=== PATIENT | female | born 1995 | race Caucasian/White ===

== ENCOUNTER 2018-09-10 18:22 | Emergency (ER) | payer OTHER ==
[2018-09-10 18:54] VITALS: BMI 30.4
--- NOTE | 2018-09-10 18:54 | PDOC ---
Rapid Medical Evaluation Chief Complaint: Chest Pain Time Seen by Provider: 09/10/18 18:51 Medical Evaluation: Allergies Allergy/AdvReac Type Severity Reaction Status Date / Time No Known Allergies Allergy Verified 09/10/18 18:51 09/10/18 18:51 I have performed a brief in-person evaluation of this patient. The patient presents with a chief complaint of: chest pain and palpatations x1 week with left arm pain hx of anxiety Pertinent physical exam findings:NAD I have ordered the following:cardiac work up u preg The patient will proceed to the ED for further evaluation. 09/10/18 18:53 Discharge Disposition - Diagnosis Heart palpitations - Referrals - Patient Instructions - Post Discharge Activity
--- NOTE | 2018-09-10 19:32 | PDOC ---
*Physical Exam - Vital Signs Last Vital Signs Temp Pulse Resp BP Pulse Ox 97.3 F L 85 16 120/83 100 09/10/18 18:51 09/10/18 18:51 09/10/18 18:51 09/10/18 18:51 09/10/18 18:51 Medical Decision Making - Medical Decision Making 09/10/18 19:30 Patient seen by the advanced practice provider under my direct supervision. Ancillary testing reviewed as necessary. I agree with plan as outlined by the advanced practice provider. *DC/Admit/Observation/Transfer Diagnosis at time of Disposition: Heart palpitations - Referrals - Patient Instructions - Post Discharge Activity
--- NOTE | 2018-09-10 19:48 | PDOC ---
History of Present Illness - General Chief Complaint: Chest Pain Stated Complaint: CHEST PAIN Time Seen by Provider: 09/10/18 18:51 History Source: Patient Exam Limitations: No Limitations - History of Present Illness Initial Comments: 09/10/18 20:13 HISTORY OF PRESENT ILLNESS: 22-year-old woman past medical history of anxiety who presents emergency department for evaluation of chest pain which started one week ago. Patient describes her chest pain as a burning sensation which is located mostly over the epigastrium and center of the chest. Patient reports having a foul taste in her mouth when the chest pain starts. Patient reports having intermittent nausea and diaphoresis when she has painful episodes. Not all painful episodes are accompanied by nausea and diaphoresis. Patient reports attacks are more frequent after eating. Patient reports this is different than her usual anxiety symptoms but is tried taking her entire anxiety medicine with minimal relief. No recent travel or sick contacts. PAST MEDICAL HISTORY: Anxiety SURGICAL HISTORY: Denies ALLERGIES: No known drug allergies REVIEW OF SYSTEMS General/Constitutional: Denies fever or chills. Denies weakness, weight change. HEENT: Denies change in vision. Denies ear pain or discharge. Denies sore throat. Cardiovascular: see HPI Respiratory: Denies cough, wheezing, or hemoptysis. Gastrointestinal: See HPI Genitourinary: Denies dysuria, frequency, or change in urination. Musculoskeletal: Denies joint or muscle swelling or pain. Denies neck or back pain. Skin and breasts: Denies rash or easy bruising. Neurologic: Denies headache, vertigo, loss of consciousness, or loss of sensation. Psychiatric: Denies depression or anxiety. Endocrine: Denies increased thirst. Denies abnormal weight change. Hematologic/Lymphatic: Denies anemia, easy bleeding, or history of blood clots. Allergic/Immunologic: Denies hives or skin allergy. Denies latex allergy. PHYSICAL EXAM General Appearance: Well-appearing, appropriately dressed. No apparent distress , no intoxication. HEENT: EOMI, PERRLA, normal ENT inspection, normal voice, TMs normal, pharynx normal. No conjunctival pallor. No photophobia, scleral icterus. Neck: Supple. Trachea midline. No tenderness, rigidity, carotid bruit, stridor , lymphadenopathy, or thyromegaly. Respiratory/Chest: Lungs CTAB. No shortness of breath, chest tenderness, respiratory distress, accessory muscle use. No crackles, rales, rhonchi, stridor , wheezing, dullness Cardiovascular: RRR. S1, S2. No JVD, murmur, bradycardia, tachycardia. Vascular Pulses: Dorsalis-Pedis (R): 2+, Dorsalis-Pedis (L): 2+ Gastrointestinal/Abdominal: Normal bowel sounds. Abdomen soft, non-distended. No tenderness or rebound tenderness. No organomegaly, pulsatile mass, guarding, hernia, hepatomegaly, splenomegaly. Lymphatic: No adenopathy, tenderness. Musculoskeletal/Extremities: Normal inspection. FROM of all extremities, normal capillary refill. Pelvis Stable. No CVA tenderness. No tenderness to extremities, pedal edema, swelling, erythema or deformity. Integumentary: Appropriate color, dry, warm. 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 Fully oriented, alert. Appropriate mood/affect. Motor strength 5/5. No appreciable EOM palsy, facial droop or sensory deficit. Past History - Past Medical History Allergies/Adverse Reactions: Allergies Allergy/AdvReac Type Severity Reaction Status Date / Time No Known Allergies Allergy Verified 09/10/18 18:51 Home Medications: Ambulatory Orders Clonazepam [Klonopin] 0.5 mg PO BID PRN MDD 1 09/10/18 Esomeprazole Magnesium [Nexium 24Hr] 20 mg PO DAILY #30 capsule. 09/10/18 COPD: No Other medical history: ANXIETY - Suicide/Smoking/Psychosocial Hx Smoking History: Never smoked Hx Alcohol Use: No Drug/Substance Use Hx: No *Physical Exam - Vital Signs Last Vital Signs Temp Pulse Resp BP Pulse Ox 97.3 F L 85 16 120/83 100 09/10/18 18:51 09/10/18 18:51 09/10/18 18:51 09/10/18 18:51 09/10/18 18:51 Heart Score/ECG Review - History History: Slightly suspicious - Electrocardiogram EKG: Normal - Age Age: </= 45 - Risk Factors Based on the list above the patient has:: No risk factors known - Troponin Troponin: </= normal limit - Score Heart Score - Total: 0 - ECG Intrepretation Rhythm: Regular Rhythm - [place]ox[place]ox[place]: Normal - ECG Impressions Normal ECG: Yes ED Treatment Course - LABORATORY CBC & Chemistry Diagram: 09/10/18 21:34 09/10/18 21:34 Medical Decision Making - Medical Decision Making 09/10/18 20:15 A/P: 22-year-old woman with 1 week of epigastric and mid chest burning which worsens after eating During physical exam patient began to experience the pain which caused her to have some shortness of breath. Patient reported stiffness in bilateral hands during this attack. Patient was placed on oxygen and was order for Valium 5 mg orally Differential diagnosis includes but is not limited to-anxiety, GERD, ACS, pancreatitis, gastritis, pneumonia, musculoskeletal, PE PE less likely as PERC-0 Labs including cardiac profile and lipase EKG Chest x-ray Urinalysis, urine , urine culture Reassess 09/10/18 20:36 EKG sinus rhythm with rate of 78. Normal intervals present. Normal axis. No ST elevations, ST depressions or T-wave inversions noted. 09/10/18 22:30 Laboratory testing notable for WBC of 15.6. There is no shift. Most likely reactive due to GERD. Chest x-ray as read by me: Angles clear. Cardiac silhouette is within normal limits. No focal infiltrates or consolidations noted. I'll discharge the patient home to follow-up with her primary doctor. We'll give the patient a prescription for PPI to take as an outpatient. I discussed the physical exam findings, ancillary test results and final diagnoses with the patient. I answered all of the patient's questions. The patient was satisfied with the care received and felt comfortable with the discharge plan and treatment plan. The patient will call their primary care physician within 24 hours to arrange follow-up and will return to the Emergency Department with any new, persistent or worsening symptoms. *DC/Admit/Observation/Transfer Diagnosis at time of Disposition: Anxiety GERD (gastroesophageal reflux disease) Qualifiers: Esophagitis presence: esophagitis presence not specified Qualified Code(s): K21.9 - Gastro-esophageal reflux disease without esophagitis - Discharge Dispostion Disposition: HOME Condition at time of disposition: Stable Decision to Admit order: No - Prescriptions Prescriptions: Esomeprazole Magnesium [Nexium 24Hr] 20 mg PO DAILY #30 capsule.dr - Referrals - Patient Instructions Printed Discharge Instructions: DI for Gastroesophageal Reflux Disease (GERD), GERD Diet Additional Instructions: Take Tylenol as needed for headaches. Take Nexium 1 pill daily. Make an appointment with her primary doctor for reevaluation. Return to emergency department for any new or worsening symptoms. Thank you very much for choosing us to provide emergent health care needs. [place] Tylenol segn sea necesario para los laury de evelio. [place] Nexium 1 pastilla diariamente. Gertrude isra angie con omffett mdico de cabecera para moffett reevaluacin. Regrese al departamento de emergencias para cualquier sntoma nuevo o que empeore. Muchas clarita por elegirnos para proporcionar necesidades de atencin mdica de emergencia. - Post Discharge Activity
[2018-09-10] MEDS ORDERED: diazePAM 5 MG TABLET PO ONE (20:09)
[2018-09-10] MEDS ORDERED: diazePAM 5 MG TABLET ONE (20:11)
[2018-09-10 20:34] VITALS: TEMP 98.6
[2018-09-10 21:48] LABS: BASO % 0.6 % (0-2.0); EOS % 0.6 % (0-4.5); HEMATOCRIT 42.6 % (32.4-45.2); HEMOGLOBIN 14.1 GM/dL (10.7-15.3); LYMPH % 17.7 % (8-40); MCHC 33.1 g/dl (32.0-36.0); MEAN CELL VOLUME 87.6 fl (80-96); MEAN PLT VOLUME 9.6 fl (7.5-11.1); MONO % 4.8 % (3.8-10.2); NEUT % 76.3 % (42.8-82.8); PLATELET COUNT 328 K/MM3 (134-434); RBC 4.86 M/mm3 (3.60-5.2); RDW 13.7 % (11.6-15.6); WHITE BLOOD COUNT 15.6 K/mm3 (4.0-10.0)
[2018-09-10 22:02] LABS: INR 1.18 (0.83-1.09)
[2018-09-10 22:15] LABS: ALBUMIN 4.2 g/dl (3.4-5.0); ALK PHOS 125 U/L (45-117); ANION GAP 9 MMOL/L (8-16); BILIRUBIN,TOTAL 0.4 mg/dL (0.2-1); BLOOD UREA NITROGEN 11 mg/dL (7-18); CALCIUM 9.7 mg/dL (8.5-10.1); CHLORIDE 101 mmol/L (98-107); CO2 27 mmol/L (21-32); CREATININE 0.7 mg/dL (0.55-1.3); GLUCOSE,RANDOM 97 mg/dL (74-106); LIPASE 110 U/L (73-393); MAGNESIUM 2.5 mg/dL (1.8-2.4); POTASSIUM 4.5 mmol/L (3.5-5.1); SGOT/AST 31 U/L (15-37); SGPT/ALT 40 U/L (13-61); SODIUM 137 mmol/L (136-145); TOT PROT 9.3 g/dl (6.4-8.2)
[2018-09-10] MEDS ORDERED: MAG HYDROX/AL HYDROX/SIMETH 30 ML UNIT-DOSE CUP PO ONE (22:19)
[2018-09-10] MEDS ORDERED: PANTOPRAZOLE 40 MG TABLET (FP) PO ONE (22:19)
[2018-09-10] MEDS ORDERED: LIDOCAINE VISCOUS 2% ORAL/TOP 20 ML UNIT-DOSE CUP PO ONE (22:19)
[2018-09-10] MEDS ORDERED: MAG HYDROX/AL HYDROX/SIMETH 30 ML UNIT-DOSE CUP ONE (22:46)
[2018-09-10] MEDS ORDERED: PANTOPRAZOLE 40 MG TABLET (FP) ONE (22:46)
[2018-09-10] MEDS ORDERED: LIDOCAINE VISCOUS 2% ORAL/TOP 20 ML UNIT-DOSE CUP ONE (22:46)
[2018-09-10 22:57] VITALS: BP 126/73; PULSE 80
--- NOTE | 2018-09-11 11:48 | EKG ---
Test Reason : Blood Pressure : / mmHG Vent. Rate : 078 BPM Atrial Rate : 078 BPM P-R Int : 122 ms QRS Dur : 086 ms QT Int : 362 ms P-R-T Axes : 018 052 037 degrees QTc Int : 412 ms NORMAL SINUS RHYTHM NORMAL ECG NO PREVIOUS ECGS AVAILABLE Confirmed by JYOTSNA DIAZ MD ([id number]) on 09/11/2018 11:47:55 AM Referred By: Confirmed By:JYOTSNA DIAZ MD
== END 2018-09-10 22:58 | disposition home or self-care (01) ==
LOC: JER 18:22
DX: F41.9 Anxiety disorder, unspecified (principal); K21.9 Gastro-esophageal reflux disease without esophagitis
CPT/HCPCS: 36415; 71046-TC-FY; 80053; 82550; 83690; 83735; 84484; 84703; 85025; 85610; 93005; 93010; 99283-25

== ENCOUNTER 2018-10-08 22:26 | Emergency (ER) | payer OTHER ==
[2018-10-08 22:48] VITALS: BP 160/89; TEMP 98.2; BMI 28.5
--- NOTE | 2018-10-08 23:33 | PDOC ---
Documentation entered by Smith Chung SCRIBE, acting as scribe for Bibi Darnell DO. Bibi Darnell DO: This documentation has been prepared by the Juliet nelson Matthew, SCRIBE, under my direction and personally reviewed by me in its entirety. I confirm that the documentation accurately reflects all work, treatment, procedures, and medical decision making performed by me. Attending Attestation - Resident Resident Name: Laura Wells - ED Attending Attestation I have performed the following: I have examined & evaluated the patient, The case was reviewed & discussed with the resident, I agree w/resident's findings & plan, Exceptions are as noted - HPI HPI: 10/09/18 00:44 Patient is a 22 year old female with no significant past medical history who presents to the ED with complaints of chest pain that began 1 month ago. Patient reports reports experiencing chest pain as well as associated chest palpitations and numbness. She reports symptoms initially beginning 1 month ago and usually last up to 4 hours. Patient reports experiencing the palpitations first followed by the chest pain which she described as a pressure like pain with intermittent right arm numbness. Denies chest pain, sob. Denies nausea, vomiting. Denies contact with sick individuals, out of state travelling. Denies fevers, chills. Denies diarrhea, constipation. Denies dysuria, hematuria. Denies any other symptoms. Allergies: None Social history: No smoking, No alcohol. No illicit drugs. Surgical history: None PMD: None - Physicial Exam PE: 10/09/18 00:44 Constitutional: Awake, alert, oriented. No acute distress. Head: Normocephalic. Atraumatic Eyes: PERRL. EOMI. Conjunctivae are not pale. ENT: Mucous membranes are moist and intact. Posterior pharynx without exudate or erythema. Uvula midline. Neck: Supple. Full ROM. No lymphadenopathy. Cardiovascular: Regular rate. Regular rhythm. S1, S2 regular. Distal pulses are 2+ and symmetric. Pulmonary/Chest: No evidence of respiratory distress. Clear to auscultation bilaterally No wheezing, rales or rhonchi. Abdominal: Soft and nondistended. There is no tenderness. No rebound, guarding or rigidity. No organomegaly. No palpable masses. Good bowel sounds. Back: No CVA tenderness. Musculoskeletal: No edema. No cyanosis. No clubbing. Full range of motion in all extremities. No Calf tenderness. Radial/pedal pulses are intact and 2+ bilaterally Skin: Skin is warm and dry. No petechiae. No purpura. Neurological: Alert and oriented to person, place, and time. Cranial nerves II -XII are grossly intact. Normal speech. Strength is grossly symmetric. No sensory deficits. Psychiatric: Good eye contact. Normal interaction, affect and behavior. - Medical Decision Making 10/08/18 23:33 I, Dr. Bibi Darnell, DO, attest that this document has been prepared under my direction and personally reviewed by me in its entirety. I further attest, that it accurately reflects all work, treatment, procedures and medical decision -making performed by me. 10/09/18 00:14 a/p: 22yo female with intermittent cp and sob x 1 month -does admit to feeling nervous/anxious -has been seen in this ER, [facility], and with her PMD/Cards for this over the last month -scheduled for a halter in the AM. -L sided upper chest pain that causes chills all over her body and sob -no diaphoresis -no nausea -low risk for acs -ekg nonacute -will send labs, dimer - pt was tachy to 117 -will monitor and reassess 10/09/18 00:36 trop negative dimer negative wbc was more elevated on the prior visit, suspect stress reaction tsh pending will continue to monitor 10/09/18 00:58 tsh normal stable for dc to home to follow up with cardiology in the AM as scheduled for her halter monitor and further eval of her cp
--- NOTE | 2018-10-08 23:45 | PDOC ---
History of Present Illness - General Chief Complaint: Chest Pain Stated Complaint: CHEST PAIN Time Seen by Provider: 10/08/18 23:01 History Source: Patient - History of Present Illness Initial Comments: 10/09/18 00:01 The patient is a 22 year old female with no significant reported PMH who presents to our ED c/o palpitations, chest pain and numbness. Symptoms have been occuring for one month and last 4 hours. Patient states she first notices palpitations and sometimes she feels a pressure like chest pain that is associated with R sided numbness. No shortness of breath, lightheadedness. Evaluated by her PMD for her symptoms and states she was started on Magnesium and Vitamin B-12. Evaluation at an outside ED approximately two weeks ago and sent to a head golf professional with PETE and scheduled Holter monitoring tomorrow. No new lower extremity edema, recent travel, OCP use. NKDA PMD: @ [facility] in [place], cannot recall name Past History - Past Medical History Allergies/Adverse Reactions: Allergies Allergy/AdvReac Type Severity Reaction Status Date / Time No Known Allergies Allergy Verified 10/08/18 22:39 COPD: No - Suicide/Smoking/Psychosocial Hx Smoking History: Never smoked Have you smoked in the past 12 months: No Information on smoking cessation initiated: No Hx Alcohol Use: No Drug/Substance Use Hx: No Review of Systems - Review of Systems Constitutional: No: Chills, Fever HEENTM: No: Blurred Vision, Hearing Loss Respiratory: No: Cough, Shortness of Breath, Wheezing Cardiac (ROS): Yes: Chest Pain, Lightheadedness, Palpitations ABD/GI: No: Constipated, Diarrhea, Nausea, Vomiting *Physical Exam - Vital Signs Last Vital Signs Temp Pulse Resp BP Pulse Ox 98.2 F 117 H 16 160/89 100 10/08/18 22:38 10/08/18 22:38 10/08/18 22:38 10/08/18 22:38 10/08/18 22:38 - Physical Exam General Appearance: Yes: Nourished, Appropriately Dressed HEENT: positive: Normal Voice, Hearing Grossly Normal Neck: positive: Trachea midline, Supple Respiratory/Chest: positive: Lungs Clear, Normal Breath Sounds. negative: Labored Respiration, Rapid RR Cardiovascular: positive: S1, S2. negative: Murmur Vascular Pulses: Dorsalis-Pedis (R): 2+, Doralis-Pedis (L): 2+ Gastrointestinal/Abdominal: positive: Normal Bowel Sounds, Soft Extremity: positive: Normal Capillary Refill, Normal Inspection Integumentary: positive: Normal Color, Dry, Warm Neurologic: positive: Fully Oriented, Alert Heart Score/ECG Review - ECG Impressions Comment:: 10/09/18 01:36 EKG shows HR 98, TWI in Lead III - c/w previous EKG ED Treatment Course - LABORATORY CBC & Chemistry Diagram: 10/08/18 23:49 10/08/18 23:49 Medical Decision Making - Medical Decision Making 10/09/18 01:06 22 year old female with palpitations, chest pain, numbness. SiSx intermittent for one month. Currently being evaluated by cardiology w/PETE yesterday and Holter monitoring scheduled for tomorrow. Tachycardic (HR 117) @ triage, repeat VS unremarkable. Will obtain EKG, Troponin x1 to r/o ACS. Will also obtain TSH to r/o palpitations 2/2 to thyroid disease and D-Dimer to r/o PE. 10/09/18 01:34 Troponin (-) x1 TSH nL D-Dimer negative EKG shows no acute ischemic changes @ documented in EKG section of EMR VSS 10/09/18 01:37 Attending counseled patient on importance of follow-up with cardiology. Patient discharged home with return precautions. *DC/Admit/Observation/Transfer Diagnosis at time of Disposition: Chest pain - Discharge Dispostion Disposition: HOME Condition at time of disposition: Good Decision to Admit order: No - Referrals - Patient Instructions Printed Discharge Instructions: DI for Atypical Chest Pain Additional Instructions: Por favor lucila un seguimiento con moffett cardilogo maana bharti se program previamente y lucila isra angie para isra evaluacin con moffett mdico de atencin primaria en las prximas 48 horas. Regrese al Departamento de Emergencias para cualquier sntoma nuevo / que empeora / relacionado. Please follow up with your head golf professional tomorrow as previously scheduled and make an appointment for evaluation with your primary care doctor in the next 48 hours. Return to the Emergency Department for any new/worsening/concerning symptoms. - Post Discharge Activity
[2018-10-09 00:09] LABS: BASO % 0.8 % (0-2.0); EOS % 0.6 % (0-4.5); HEMATOCRIT 36.3 % (32.4-45.2); LYMPH % 21.3 % (8-40); MCH 29.1 pg (25.7-33.7); MCHC 33.1 g/dl (32.0-36.0); MEAN CELL VOLUME 87.9 fl (80-96); MEAN PLT VOLUME 9.1 fl (7.5-11.1); NEUT % 71.3 % (42.8-82.8); PLATELET COUNT 292 K/MM3 (134-434); RBC 4.13 M/mm3 (3.60-5.2); RDW 13.1 % (11.6-15.6); WHITE BLOOD COUNT 13.3 K/mm3 (4.0-10.0)
[2018-10-09] MEDS ORDERED: ACETAMINOPHEN 325 MG TABLET (FP) PO ONE (00:16)
[2018-10-09 00:24] VITALS: PULSE 80
[2018-10-09] MEDS ORDERED: ACETAMINOPHEN 325 MG TABLET (FP) ONE (00:24)
[2018-10-09 00:32] LABS: ALBUMIN 3.4 g/dl (3.4-5.0); ALK PHOS 118 U/L (45-117); ANION GAP 7 MMOL/L (8-16); BILIRUBIN,TOTAL 0.2 mg/dL (0.2-1); BLOOD UREA NITROGEN 10 mg/dL (7-18); CALCIUM 8.9 mg/dL (8.5-10.1); CHLORIDE 104 mmol/L (98-107); CO2 26 mmol/L (21-32); CREATININE 0.6 mg/dL (0.55-1.3); GLUCOSE,RANDOM 98 mg/dL (74-106); POTASSIUM 3.7 mmol/L (3.5-5.1); SGOT/AST 17 U/L (15-37); SGPT/ALT 52 U/L (13-61); SODIUM 137 mmol/L (136-145); TOT PROT 7.5 g/dl (6.4-8.2)
--- NOTE | 2018-10-09 13:40 | EKG ---
Test Reason : Blood Pressure : / mmHG Vent. Rate : 098 BPM Atrial Rate : 098 BPM P-R Int : 114 ms QRS Dur : 086 ms QT Int : 340 ms P-R-T Axes : 039 053 014 degrees QTc Int : 434 ms NORMAL SINUS RHYTHM NORMAL ECG WHEN COMPARED WITH ECG OF 10-SEP-2018 18:25, NO SIGNIFICANT CHANGE WAS FOUND Confirmed by JYOTSNA DIAZ MD ([id number]) on 10/09/2018 1:39:43 PM Referred By: Confirmed By:JYOTSNA DIAZ MD
== END 2018-10-09 01:28 | disposition home or self-care (01) ==
LOC: JER 22:26
DX: R07.9 Chest pain, unspecified (principal)
CPT/HCPCS: 36415; 80053; 82550; 84443; 84484; 85025; 85379; 93005; 93010; 99283-25

== ENCOUNTER 2018-10-12 17:20 | Emergency (ER) | payer OTHER ==
[2018-10-12 17:27] VITALS: BP 114/77; PULSE 98; TEMP 98.6; BMI 28.8
--- NOTE | 2018-10-12 17:52 | PDOC ---
History of Present Illness - General Chief Complaint: Respiratory Stated Complaint: CHEST PAIN Time Seen by Provider: 10/12/18 17:46 History Source: Patient Exam Limitations: No Limitations - History of Present Illness Initial Comments: 10/12/18 17:49 22-year-old female with no past medical history presents to ED with complaints of hot sensation to her chest and neck intermittently for the past month and has been seen by water taxi captain currently wearing a Holter monitor has to be removed this upcoming Saturday by Dr. Rosado. Patient denies difficulty breathing , palpitations, nausea, dizziness, headache, abdominal pain, change in urine pattern or change in bowel pattern. Patient states has had an echo and is pending a transesophageal echo once the Holter monitor has been reviewed. Patient states has had full workups with no findings and denies any familial cardiac history. Timing/Duration: intermittent Severity: mild Associated Symptoms: reports: chest pain Past History - Travel Traveled outside of the country in the last 30 days: No Close contact w/someone who was outside of country & ill: No - Past Medical History Allergies/Adverse Reactions: Allergies Allergy/AdvReac Type Severity Reaction Status Date / Time No Known Allergies Allergy Verified 10/12/18 17:27 COPD: No - Suicide/Smoking/Psychosocial Hx Smoking History: Never smoked Have you smoked in the past 12 months: No Hx Alcohol Use: No Drug/Substance Use Hx: No Patient Lives Alone: No Lives with/in: parents Review of Systems - Review of Systems Able to Perform ROS?: No Is the patient limited Kiswahili proficient: No Constitutional: No: Symptoms Reported HEENTM: No: Symptoms Reported Respiratory: No: Symptoms reported Cardiac (ROS): Yes: Chest Pain. No: Lightheadedness, Palpitations, Chest Tightness ABD/GI: No: Symptoms Reported : No: Symptoms Reported Musculoskeletal: No: Symptoms Reported Integumentary: No: Symptoms Reported Neurological: No: Symptoms reported Psychiatric: No: Anxiety, Stressors Endocrine: No: Symptoms Reported Hematologic/Lymphatic: No: Symptoms Reported *Physical Exam - Vital Signs Last Vital Signs Temp Pulse Resp BP Pulse Ox 98.6 F 98 H 18 114/77 100 10/12/18 17:23 10/12/18 17:23 10/12/18 17:23 10/12/18 17:23 10/12/18 17:23 - Physical Exam General Appearance: Yes: Nourished, Appropriately Dressed. No: Apparent Distress HEENT: positive: EOMI, MIMI, TMs Normal, Pharynx Normal. negative: Pale Conjunctivae Neck: positive: Normal Thyroid, Supple Respiratory/Chest: positive: Lungs Clear, Normal Breath Sounds. negative: Chest Tender, Respiratory Distress, Accessory Muscle Use Cardiovascular: positive: Regular Rhythm, Regular Rate. negative: Murmur Gastrointestinal/Abdominal: positive: Normal Bowel Sounds, Soft. negative: Tenderness Extremity: positive: Normal Capillary Refill. negative: Pedal Edema Integumentary: positive: Normal Color, Warm, Moist Neurologic: positive: Motor Strength 5/5 (ambulatory) Heart Score/ECG Review - ECG Intrepretation Rhythm: Regular Rhythm (ekg 79, nsr) ED Treatment Course - LABORATORY CBC & Chemistry Diagram: 10/12/18 18:00 10/12/18 18:00 Medical Decision Making - Medical Decision Making 10/12/18 17:50 Chief complaint: Intermittent in "hotness to chest and neck"no aggravating or alleviating factors patient currently being followed by water taxi captain has Holter monitor in place until Saturday where she will follow-up with Dr. Rosado in the office. Exam: Vital stable EKG negative no reproducible pain patient currently appears to be in no distress when talking with friend Plan: Labs/ekg 10/12/18 18:07 Selected Entries 10/12/18 17:23 Pulse Rate 98 H Blood Pressure 114/77
--- NOTE | 2018-10-12 17:56 | PDOC ---
*Physical Exam - Vital Signs Last Vital Signs Temp Pulse Resp BP Pulse Ox 98.6 F 98 H 18 114/77 100 10/12/18 17:23 10/12/18 17:23 10/12/18 17:23 10/12/18 17:23 10/12/18 17:23 ED Treatment Course - LABORATORY CBC & Chemistry Diagram: 10/12/18 18:00 10/12/18 18:00 Medical Decision Making - Medical Decision Making 10/12/18 17:56 Pt seen by the Advanced Practice Provider under my direct supervision Ancillary studies reviewed I agree with plan as outlined by the Advanced Practice Provider ALFREDO Lane *DC/Admit/Observation/Transfer Diagnosis at time of Disposition: Chest pain - Discharge Dispostion Disposition: HOME Condition at time of disposition: Stable - Referrals - Patient Instructions Printed Discharge Instructions: DI for Atypical Chest Pain Additional Instructions: Your Discharge Instructions: You must call primary care physician within 24 hours to arrange follow-up. Return to the Emergency Department with any new, persistent or worsening symptoms, for fever, chills, SOB, dizziness or any other concerning changes that may occur. Follow-up with cardiology on your primary care doctor. We have given you copies of your labs and EKG to present to your doctor's. - Post Discharge Activity
[2018-10-12 18:06] LABS: BASO % 0.8 % (0-2.0); EOS % 1.1 % (0-4.5); HEMATOCRIT 39.8 % (32.4-45.2); LYMPH % 22.6 % (8-40); MCH 28.4 pg (25.7-33.7); MCHC 32.6 g/dl (32.0-36.0); MEAN CELL VOLUME 87.2 fl (80-96); MEAN PLT VOLUME 9.1 fl (7.5-11.1); MONO % 6.6 % (3.8-10.2); NEUT % 68.9 % (42.8-82.8); PLATELET COUNT 334 K/MM3 (134-434); RBC 4.56 M/mm3 (3.60-5.2); RDW 12.9 % (11.6-15.6); WHITE BLOOD COUNT 16.2 K/mm3 (4.0-10.0)
[2018-10-12 18:53] LABS: ALBUMIN 3.6 g/dl (3.4-5.0); ALK PHOS 123 U/L (45-117); ANION GAP 8 MMOL/L (8-16); BILIRUBIN,TOTAL < 0.1 mg/dL (0.2-1); BLOOD UREA NITROGEN 19 mg/dL (7-18); CALCIUM 9.3 mg/dL (8.5-10.1); CHLORIDE 103 mmol/L (98-107); CO2 28 mmol/L (21-32); CREATININE 0.7 mg/dL (0.55-1.3); GLUCOSE,RANDOM 86 mg/dL (74-106); SGOT/AST 16 U/L (15-37); SGPT/ALT 37 U/L (13-61); SODIUM 139 mmol/L (136-145)
--- NOTE | 2018-10-12 19:26 | PDOC ---
*Physical Exam - Vital Signs Last Vital Signs Temp Pulse Resp BP Pulse Ox 98.6 F 98 H 18 114/77 98 10/12/18 17:23 10/12/18 17:23 10/12/18 17:23 10/12/18 17:23 10/12/18 18:04 ED Treatment Course - LABORATORY CBC & Chemistry Diagram: 10/12/18 18:00 10/12/18 18:00 - ADDITIONAL ORDERS Additional order review: Laboratory Results 10/12/18 18:00 Sodium 139 Potassium 4.0 Chloride 103 Carbon Dioxide 28 Anion Gap 8 BUN 19 H Creatinine 0.7 Creat Clearance w eGFR 103.70 Random Glucose 86 Calcium 9.3 Total Bilirubin < 0.1 L AST 16 ALT 37 Alkaline Phosphatase 123 H Creatine Kinase 72 Troponin I < 0.02 Total Protein 8.0 Albumin 3.6 10/12/18 18:00 RBC 4.56 MCV 87.2 MCHC 32.6 RDW 12.9 MPV 9.1 Neutrophils % 68.9 Lymphocytes % 22.6 Monocytes % 6.6 Eosinophils % 1.1 D Basophils % 0.8 Medical Decision Making - Medical Decision Making 10/12/18 19:21 Patient was endorsed to me to follow laboratory and disposition. Patient complains of pain in the left chest and now in the left arm for one month. She has taken Tylenol for the pain with no relief of symptoms. Labwork done here revealed 16,000 white count with in the absence of fever and elevated temperature will not pursue this at this time. Troponin is negative. EKG: SR 79, NAD, no ST-T wave changes. Patient has an appointment with primary care and cardiology on Saturday of this week. We'll give all the labs and a copy of the EKG for follow-up. I discussed the physical exam findings, ancillary test results and final diagnoses with the patient. I answered all of the patient's questions. The patient was satisfied with the care received and felt comfortable with the discharge plan and treatment plan. The Patient agrees to follow up with the primary care physician within 24-72 hours. *DC/Admit/Observation/Transfer Diagnosis at time of Disposition: Chest pain Qualifiers: Chest pain type: unspecified Qualified Code(s): R07.9 - Chest pain, unspecified - Discharge Dispostion Disposition: HOME Condition at time of disposition: Stable - Referrals - Patient Instructions Printed Discharge Instructions: DI for Atypical Chest Pain Additional Instructions: Your Discharge Instructions: You must call primary care physician within 24 hours to arrange follow-up. Return to the Emergency Department with any new, persistent or worsening symptoms, for fever, chills, SOB, dizziness or any other concerning changes that may occur. Follow-up with cardiology on your primary care doctor. We have given you copies of your labs and EKG to present to your doctor's. - Post Discharge Activity
--- NOTE | 2018-10-13 10:00 | EKG ---
Test Reason : Blood Pressure : / mmHG Vent. Rate : 079 BPM Atrial Rate : 079 BPM P-R Int : 144 ms QRS Dur : 080 ms QT Int : 354 ms P-R-T Axes : 057 065 036 degrees QTc Int : 405 ms NORMAL SINUS RHYTHM NORMAL ECG WHEN COMPARED WITH ECG OF 08-OCT-2018 22:20, NO SIGNIFICANT CHANGE WAS FOUND Confirmed by CHELA BAIG MD ([id number]) on 10/13/2018 10:00:03 AM Referred By: Confirmed By:CHELA BAIG MD
== END 2018-10-12 19:35 | disposition home or self-care (01) ==
LOC: JER 17:20
DX: R07.9 Chest pain, unspecified (principal)
CPT/HCPCS: 36415; 80053; 82550; 84484; 85025; 93005; 93010; 99285-25

== ENCOUNTER 2018-10-24 16:55 | Emergency (ER) | payer OTHER ==
--- NOTE | 2018-10-24 17:19 | PDOC ---
Rapid Medical Evaluation Chief Complaint: Chest Pain Time Seen by Provider: 10/24/18 17:07 Medical Evaluation: Allergies Allergy/AdvReac Type Severity Reaction Status Date / Time No Known Allergies Allergy Verified 10/12/18 17:27 10/24/18 17:14 I have performed a brief in-person evaluation of this patient. The patient presents with a chief complaint of: midsternal CP, worse with walking.- has + medical assistant - told has Valve problem . Had midsternal CP last week, resolved and started again today Pertinent physical exam findings: + pansystolic murmer / rubbing chest I have ordered the following: EKG The patient will proceed to the ED for further evaluation. 10/24/18 17:18 Discharge Disposition - Diagnosis Chest pain - Referrals - Patient Instructions - Post Discharge Activity
[2018-10-24 17:20] VITALS: BP 105/63; PULSE 98; TEMP 98.2; BMI 28.5
[2018-10-24] MEDS ORDERED: ACETAMINOPHEN 500 MG TABLET (FP) PO ONE (17:58)
[2018-10-24] MEDS ORDERED: ACETAMINOPHEN 325 MG TABLET (FP) ONE (18:00)
--- NOTE | 2018-10-24 18:01 | PDOC ---
History of Present Illness - General Chief Complaint: Chest Pain Stated Complaint: CHEST PAIN Time Seen by Provider: 10/24/18 17:07 - History of Present Illness Initial Comments: 10/24/18 18:00 The patient is a 22 year old female with no reported significant PMH who presents to our ED c/o acute onset of chest pain. Chest pain is sharp, constant and started this morning around 9 a.m. Patient stated she took a walk hoping the patient would resolve but the pain got worse prompting her to come to the Emergency Department. No previous h/o similar pain. No palpitations, shortness of breath, lightheadedness. 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 ROS is positive for 1 week h/o dysuria and hematuria. As per EMR, multiple evaluations during the past 2 months for chest pain, Troponins (-) patient discharged home with supportive care. Past History - Past Medical History Allergies/Adverse Reactions: Allergies Allergy/AdvReac Type Severity Reaction Status Date / Time No Known Allergies Allergy Verified 10/24/18 17:15 Home Medications: Ambulatory Orders Sulfamethoxazole/Trimethoprim [Bactrim Ds Tablet] 1 each PO BID #6 tablet COPD: No - Immunization History Immunization Up to Date: Yes - Suicide/Smoking/Psychosocial Hx Smoking History: Never smoked Have you smoked in the past 12 months: No Information on smoking cessation initiated: No Hx Alcohol Use: No Drug/Substance Use Hx: No Review of Systems - Review of Systems Constitutional: No: Chills, Fever HEENTM: No: Blurred Vision, Recent change in vision Respiratory: No: Cough, Shortness of Breath, Wheezing Cardiac (ROS): Yes: Chest Pain. No: Lightheadedness, Palpitations, Syncope ABD/GI: No: Constipated, Diarrhea, Nausea, Vomiting *Physical Exam - Vital Signs Last Vital Signs Temp Pulse Resp BP Pulse Ox 98.2 F 98 H 16 105/63 100 10/24/18 17:15 10/24/18 17:15 10/24/18 17:15 10/24/18 17:15 10/24/18 17:15 - Physical Exam General Appearance: Yes: Nourished, Appropriately Dressed HEENT: positive: Normal Voice, Hearing Grossly Normal Neck: positive: Trachea midline, Supple Respiratory/Chest: positive: Lungs Clear, Normal Breath Sounds, Other ( Reproducible substernal chest pain) Cardiovascular: positive: S1, S2. negative: Edema, JVD, Murmur Gastrointestinal/Abdominal: positive: Normal Bowel Sounds, Soft Extremity: positive: Normal Capillary Refill, Normal Inspection Integumentary: positive: Normal Color, Dry, Warm Neurologic: positive: Fully Oriented, Alert Heart Score/ECG Review - ECG Intrepretation Comment:: 10/25/18 00:19 NSR HR 94, normal intervals, no deviations, no VICKY/STD/TWI ED Treatment Course - LABORATORY CBC & Chemistry Diagram: 10/24/18 18:10 10/24/18 18:10 Medical Decision Making - Medical Decision Making 10/24/18 20:07 22 year old well appearing female with acute onset of chest pain this morning. Pain is substernal, sharp, and constant and reproducible. VS unremarkable. PLAN: 1. Troponin x1 2. EKG, CXR 3. UA 4. Tylenol for pain, Toradol s/p negative test EKG non-ischemic as documented in EKG section of EMR Troponin (-) x1 Reactive leukocytosis Continues to c/o pain s/p Tylenol; Urine (-), Toradol for pain UA shows 1375 bacteria, 1+ blood, 3+ leukocyte esterase Patient symptomatically improved s/p Toradol Will discharge home with strong counseling for importance of evaluation by PMD, Bactrim for UTI, return precautions. I discussed the physical exam findings, ancillary test results and final diagnoses with the patient. I answered all of the patient's questions. The patient was satisfied with the care received and felt comfortable with the discharge plan and treatment plan. The patient will return to the Emergency Department with any new, persistent or worsening symptoms. *DC/Admit/Observation/Transfer Diagnosis at time of Disposition: Chest pain, Urinary tract infection - Discharge Dispostion Disposition: HOME Condition at time of disposition: Fair Decision to Admit order: No - Prescriptions Prescriptions: Sulfamethoxazole/Trimethoprim [Bactrim Ds Tablet] 1 each PO BID #6 tablet - Referrals - Patient Instructions Printed Discharge Instructions: DI for Atypical Chest Pain Additional Instructions: Usted fue evaluado hoy por moffett dolor en el pecho. En karina momento usted est seguro para el jeff del hogar. Gertrude isra angie de seguimiento con moffett mdico de atencin primaria para el dolor de pecho. Moffett atencin no est completa hasta que moffett mdico de atencin primaria lo evale. Puede nba Tylenol (hasta 4000 mg al da) y Motrin (hasta 3200 mg al da) para el dolor. Isra prueba de orina mostr isra infeccin del tracto urinario. Hemos enviado un antibitico a moffett farmacia. Por favor tome el curso completo prescrito. Regrese al [facility] para cualquier sntoma nuevo / que empeora / relacionado. - Post Discharge Activity
[2018-10-24 18:23] LABS: HCG,QUALITATIVE URINE Negative; PH,URINE 5.5 (5.0-8.0); URINE APPEARANCE CLOUDY; URINE BACTERIA 1375.8 /hpf (NEGATIVE); URINE BILIRUBIN NEGATIVE (NEGATIVE); URINE CASTS 38 /lpf (0-8); URINE COLOR YELLOW; URINE GLUCOSE (UA) NEGATIVE (NEGATIVE); URINE KETONE NEGATIVE (NEGATIVE); URINE LEUK ESTERASE 3+ (NEGATIVE); URINE NITRITE NEGATIVE (NEGATIVE); URINE PROTEIN NEGATIVE (NEGATIVE); URINE RBC 14 /hpf (0-4); URINE UROBILINOGEN 0.2 mg/dL (0.2-1.0); URINE WBC 61 /hpf (0-5)
[2018-10-24] MEDS ORDERED: KETOROLAC TROMETHAMINE 30 MG/1 ML VIAL IM ONE (18:48)
[2018-10-24 19:01] LABS: BASO % 0.6 % (0-2.0); EOS % 0.9 % (0-4.5); HEMATOCRIT 36.6 % (32.4-45.2); HEMOGLOBIN 11.8 GM/dL (10.7-15.3); LYMPH % 23.3 % (8-40); MCH 28.1 pg (25.7-33.7); MCHC 32.2 g/dl (32.0-36.0); MEAN CELL VOLUME 87.2 fl (80-96); MEAN PLT VOLUME 9.3 fl (7.5-11.1); MONO % 6.7 % (3.8-10.2); NEUT % 68.5 % (42.8-82.8); PLATELET COUNT 284 K/MM3 (134-434); RBC 4.19 M/mm3 (3.60-5.2); RDW 13.7 % (11.6-15.6); WHITE BLOOD COUNT 13.7 K/mm3 (4.0-10.0)
--- NOTE | 2018-10-24 19:04 | PDOC ---
Documentation entered by Samia Rubalcava SCRIBE, acting as scribe for Warner Vergara MD. Warner Vergara MD: This documentation has been prepared by the Khadar nelson Daisy, SCRIBE, under my direction and personally reviewed by me in its entirety. I confirm that the documentation accurately reflects all work, treatment, procedures, and medical decision making performed by me. Attending Attestation - Resident Resident Name: RussellLaura - ED Attending Attestation I have performed the following: I have examined & evaluated the patient, The case was reviewed & discussed with the resident, I agree w/resident's findings & plan, Exceptions are as noted - HPI HPI: 10/24/18 18:10 The patient is a 22YOF with no PMH who presents to the ER for chest pain since 9AM this morning. She reports the chest pain is substernal, constant, and exacerbated with walking and certain positions. She has been evaluated in this ED 3 other times for chest pain but states this pain is slightly different. Pt denies SOB. Denies cough. Denies F/C. Denies leg swelling. Pt is not on OCPs. No recent travel/immobilization. She had a halter monitor and ECHO recently, which were unremarkable. Denies lightheadedness, palpitations, diaphoresis, shortness of breath, fever, chills, N/V. Allergies: NKDA - Physicial Exam PE: 10/24/18 18:58 GENERAL: Awake, alert, and fully oriented, in no acute distress. HEAD: No signs of trauma EYES: PERRLA, EOMI, sclera anicteric, conjunctiva clear ENT: Auricles normal inspection, hearing grossly normal, nares patent, oropharynx clear without exudates. Moist mucosa NECK: Nontender, no stepoffs, Normal ROM, supple, no lymphadenopathy, JVD, or masses LUNGS: Breath sounds equal, clear to auscultation bilaterally. No wheezes, and no crackles HEART: Regular rate and rhythm, normal S1 and S2, no murmurs, rubs or gallops CHEST: + TTP midsternum ABDOMEN: Soft, nontender, normoactive bowel sounds. No guarding, no rebound. No masses EXTREMITIES: Normal range of motion, no edema. No clubbing or cyanosis. No cords, erythema, or tenderness NEUROLOGICAL: Cranial nerves II through XII intact. 5/5 strength and sensation in all extremities, Normal speech, normal gait, normal cerebellar function SKIN: Warm, Dry, normal turgor, no rashes or lesions noted. - Medical Decision Making 10/24/18 18:59 22 F with positional midsternal chest pain. Pain is very atypical and reproducible with palpation. Suspect msk pain/costochondritis. EKG nonischemic. Pt with no PE risk factors, PERC score 0. Had negative Ddimer during previous evaluation for chest pain. EKG with no ST changes or [place] depression to suggest pericarditis, no h/o infectious symptoms. - Labs, trop - Toradol 10/24/18 19:58 Labs wnl, trop negative Pt reassessed - feels better s/p toradol UA + for UTI Will give abx, pt to f/u with PMD Pt is well appearing, with normal vitals. Clinically stable for DC at this time. I discussed the physical exam findings, ancillary test results and final diagnoses with the patient. I answered all of the patient's questions. The patient was satisfied with the care received and felt comfortable with the discharge plan and treatment plan. The patient agrees to follow up with the primary care physician within 24-72 hours.
[2018-10-24] MEDS ORDERED: KETOROLAC TROMETHAMINE 30 MG/1 ML VIAL ONE (19:17)
[2018-10-24 19:32] LABS: ALBUMIN 3.6 g/dl (3.4-5.0); ALK PHOS 107 U/L (45-117); ANION GAP 9 MMOL/L (8-16); BILIRUBIN,TOTAL 0.2 mg/dL (0.2-1); BLOOD UREA NITROGEN 14 mg/dL (7-18); CALCIUM 8.7 mg/dL (8.5-10.1); CHLORIDE 104 mmol/L (98-107); CO2 24 mmol/L (21-32); CREATININE 0.8 mg/dL (0.55-1.3); GLUCOSE,RANDOM 92 mg/dL (74-106); POTASSIUM 3.9 mmol/L (3.5-5.1); SGOT/AST 15 U/L (15-37); SGPT/ALT 37 U/L (13-61); SODIUM 137 mmol/L (136-145); TOT PROT 7.6 g/dl (6.4-8.2)
--- NOTE | 2018-10-26 12:37 | EKG ---
Test Reason : Blood Pressure : / mmHG Vent. Rate : 094 BPM Atrial Rate : 094 BPM P-R Int : 128 ms QRS Dur : 094 ms QT Int : 340 ms P-R-T Axes : 046 046 020 degrees QTc Int : 425 ms NORMAL SINUS RHYTHM NORMAL ECG WHEN COMPARED WITH ECG OF 12-OCT-2018 17:22, NO SIGNIFICANT CHANGE WAS FOUND Confirmed by MARC CUEVAS MD ([id number]) on 10/26/2018 12:37:20 PM Referred By: Confirmed By:MARC CUEVAS MD
== END 2018-10-24 20:52 | disposition home or self-care (01) ==
LOC: JER 16:55
PROC: 3E0233Z Introduction of Anti-inflammatory into Muscle, Percutaneous Approach (ICD-10-PCS; principal; 2018-10-24)
DX: R07.9 Chest pain, unspecified (principal); N39.0 Urinary tract infection, site not specified
CPT/HCPCS: 36415; 80053; 81003; 82550; 84484; 84703; 85025; 93005; 93010; 99283-25

== ENCOUNTER 2018-11-12 10:43 | Emergency (ER) | payer OTHER | END 2018-11-12 16:45 | disposition home or self-care (01) | LOC: JER 10:43 ==

== ENCOUNTER 2018-11-16 20:30 | Emergency (ER) | payer OTHER ==
[2018-11-16 20:48] VITALS: BMI 29.3
--- NOTE | 2018-11-16 20:49 | PDOC ---
History of Present Illness - General Chief Complaint: Chest Pain Stated Complaint: VOMITING/CHEST PAIN Time Seen by Provider: 11/16/18 20:49 - History of Present Illness Initial Comments: 22 year old female with no PMH presenting to the ED with 2 days of nausea, vomiting, chest pain, and occasional loose stools. Patient stats that she started to feel a burning sensation in her throat which transitioned to a nausea and she noticed NBNB vomiting which she suffers a few times per day since. After the first few episodes of vomiting, she notes burning chest pain which occasionally travels down her arm. She hasn't taken any medications for these symptoms. States that she usually eats salads and chicken as well as denying alcohol or spicy food intake. Denies fevers, chills, headache, cough, SOB, urinary symptoms, or other symptoms. LMP October 29 and tawny any abdominal surgeries. 11/16/18 21:03 Past History - Past Medical History Allergies/Adverse Reactions: Allergies Allergy/AdvReac Type Severity Reaction Status Date / Time No Known Allergies Allergy Verified 11/16/18 20:47 Home Medications: Ambulatory Orders Famotidine/Ca Carb/Mag Hydrox [Pepcid Complete Tablet Chew] 1 each PO DAILY #30 tab.chew 11/16/18 Mag Hydrox/Al Hydrox/Simeth [Mylanta Suspension -] 30 ml PO Q6H PRN #1 bottle COPD: No - Immunization History Immunization Up to Date: Yes - Suicide/Smoking/Psychosocial Hx Smoking History: Unknown if ever smoked Have you smoked in the past 12 months: No Information on smoking cessation initiated: No Hx Alcohol Use: No Drug/Substance Use Hx: No Review of Systems - Review of Systems Constitutional: No: Chills, Diaphoresis, Fever, Loss of Appetite HEENTM: No: Blurred Vision, Tearing Respiratory: No: Cough, Orthopnea, Shortness of Breath Cardiac (ROS): No: Chest Pain, Edema, Irregular Heart Rate ABD/GI: No: Diarrhea, Nausea, Vomiting : No: Dysuria, Discharge, Frequency Musculoskeletal: No: Back Pain, Gout, Joint Pain Integumentary: No: Erythema, Flushing, Lesions Neurological: No: Headache, Numbness, Paresthesia Psychiatric: Yes: Anxiety. No: Depression Hematologic/Lymphatic: No: Anemia, Blood Clots, Easy Bleeding *Physical Exam - Vital Signs Last Vital Signs Temp Pulse Resp BP Pulse Ox 98.0 F 95 H 16 131/73 100 11/16/18 20:45 11/16/18 20:45 11/16/18 20:45 11/16/18 20:45 11/16/18 20:45 - Physical Exam General Appearance: Yes: Nourished, Appropriately Dressed. No: Apparent Distress HEENT: positive: EOMI, MIMI, Normal ENT Inspection, Normal Voice Neck: positive: Trachea midline, Normal Thyroid, Supple. negative: Tender, Rigid Respiratory/Chest: positive: Lungs Clear, Normal Breath Sounds. negative: Chest Tender, Respiratory Distress, Accessory Muscle Use Cardiovascular: positive: Regular Rhythm, Regular Rate Gastrointestinal/Abdominal: positive: Normal Bowel Sounds, Flat, Soft. negative : Tender Lymphatic: negative: Adenopathy, Tenderness Musculoskeletal: positive: Normal Inspection. negative: Decreased Range of Motion Extremity: positive: Normal Capillary Refill, Normal Inspection, Normal Range of Motion. negative: Tender Integumentary: positive: Normal Color, Dry, Warm Neurologic: positive: Fully Oriented, Alert, Normal Mood/Affect, Normal Response , Motor Strength 5/5 Heart Score/ECG Review - History History: Slightly suspicious - Electrocardiogram EKG: Normal - Age Age: </= 45 - Risk Factors Based on the list above the patient has:: No risk factors known - Troponin Troponin: </= normal limit - Score Heart Score - Total: 0 ED Treatment Course - LABORATORY CBC & Chemistry Diagram: 11/16/18 22:05 11/16/18 22:05 Medical Decision Making - Medical Decision Making 22 year old female with PMH of multiple presentations for chest pains over the past year with negative workups presenting with chest pain after two days of vomiting. 11/16/18 21:15 Abdomen soft and PE just demonstrating slightly hyperactive bowel sounds. Labs roughly WNL with slightly elevated WBC to 14 but urine did demonstrate ketones so may be hemoconcentration vs. reactive 2/2 vomiting. VSS so not likely infectious pathology. Not likel;y cardiac pathology as HS is 0 and troponin negative with EKG demonstrating rate 95, IA interval 116, QRS 86, and QTc 439, normal axis and no ST or t-wave changes. Pain drastically improved after Pepcid , Maalox, and 2L NS. This is most concerning for GERD/ peptic ulcer disease. Will DC with Pepcid, Maalox, and GI follow up. 11/16/18 22:49 *DC/Admit/Observation/Transfer Diagnosis at time of Disposition: GERD (gastroesophageal reflux disease) Qualifiers: Esophagitis presence: esophagitis presence not specified Qualified Code(s): K21.9 - Gastro-esophageal reflux disease without esophagitis - Discharge Dispostion Disposition: HOME Condition at time of disposition: Improved Decision to Admit order: No - Prescriptions Prescriptions: Famotidine/Ca Carb/Mag Hydrox [Pepcid Complete Tablet Chew] 1 each PO DAILY #30 tab.chew Mag Hydrox/Al Hydrox/Simeth [Mylanta Suspension -] 30 ml PO Q6H PRN #1 bottle PRN Reason: Pain - Referrals Referrals: Eduardo Polanco MD [Staff Physician] - - Patient Instructions Printed Discharge Instructions: DI for Gastroesophageal Reflux Disease (GERD), DI for Atypical Chest Pain Additional Instructions: Por favor, tome margi medicamentos segn lo prescrito. Por favor lucila isra angie con el Dr. Polanco (el doctor del estmago). Regrese a la penny de emergencias si tiene sntomas nuevos o que empeoran. Print Language: [id number] - Post Discharge Activity
[2018-11-16] MEDS ORDERED: ONDANSETRON 4 MG/2 ML VIAL IVPUSH ONE (21:02)
[2018-11-16] MEDS ORDERED: MAG HYDROX/AL HYDROX/SIMETH 30 ML UNIT-DOSE CUP PO ONE (21:02)
[2018-11-16] MEDS ORDERED: FAMOTIDINE 20 MG/50 ML IVPB 20 MG/50 ML MG IVPB ONE ×2 (21:02→21:05)
[2018-11-16] MEDS ORDERED: SODIUM CHLORIDE 0.9% 500 ML INFUS.BAG IV ONE ×3 (21:02→22:43)
[2018-11-16] MEDS ORDERED: MAG HYDROX/AL HYDROX/SIMETH 30 ML UNIT-DOSE CUP ONE (21:05)
[2018-11-16] MEDS ORDERED: ONDANSETRON 4 MG/2 ML VIAL ONE (21:05)
[2018-11-16 22:05] LABS: EPI CELLS 25.3 /HPF (0-5/HPF); HYALINE CASTS 7 /lpf (0-8); URINE APPEARANCE CLOUDY; URINE BACTERIA 505.7 /hpf (NEGATIVE); URINE BILIRUBIN NEGATIVE (NEGATIVE); URINE COLOR YELLOW; URINE GLUCOSE (UA) NEGATIVE (NEGATIVE); URINE KETONE 2+ (NEGATIVE); URINE LEUK ESTERASE NEGATIVE (NEGATIVE); URINE NITRITE NEGATIVE (NEGATIVE); URINE PROTEIN NEGATIVE (NEGATIVE); URINE RBC 15 /hpf (0-4); URINE UROBILINOGEN 0.2 mg/dL (0.2-1.0); URINE WBC 6 /hpf (0-5)
[2018-11-16 22:19] LABS: HEMATOCRIT 35.6 % (32.4-45.2); HEMOGLOBIN 11.9 GM/dL (10.7-15.3); MCHC 33.4 g/dl (32.0-36.0); MEAN CELL VOLUME 86.9 fl (80-96); MEAN PLT VOLUME 9.1 fl (7.5-11.1); RDW 13.7 % (11.6-15.6)
[2018-11-16 22:24] LABS: BILIRUBIN,TOTAL 0.2 mg/dL (0.2-1); BLOOD UREA NITROGEN 14.1 mg/dL (7-18); CALCIUM 9.2 mg/dL (8.5-10.1); CREATININE 0.6 mg/dL (0.55-1.3); TOT PROT 8.3 g/dl (6.4-8.2)
[2018-11-16 22:54] LABS: ALBUMIN 3.5 g/dl (3.4-5.0); ALK PHOS 110 U/L (45-117); AMYLASE 54 U/L (25-115); ANION GAP 8 MMOL/L (8-16); BILIRUBIN,TOTAL 0.2 mg/dL (0.2-1); BLOOD UREA NITROGEN 13.3 mg/dL (7-18); CALCIUM 8.5 mg/dL (8.5-10.1); CHLORIDE 105 mmol/L (98-107); CO2 26 mmol/L (21-32); CREATININE 0.7 mg/dL (0.55-1.3); GLUCOSE,RANDOM 90 mg/dL (74-106); LIPASE 103 U/L (73-393); POTASSIUM 3.5 mmol/L (3.5-5.1); SGOT/AST 19 U/L (15-37); SGPT/ALT 56 U/L (13-61); SODIUM 139 mmol/L (136-145); TOT PROT 7.2 g/dl (6.4-8.2)
[2018-11-16] MEDS ORDERED: ACETAMINOPHEN 1000 MG/100 ML VIAL (NON FORMULARY) IVPB ONE (22:58)
[2018-11-16] MEDS ORDERED: ACETAMINOPHEN INJECTION 100 ML IVPB ONE (23:02)
[2018-11-16 23:38] LABS: PLATELET COUNT 259 K/MM3 (134-434)
[2018-11-17 00:05] VITALS: BP 117/77; PULSE 73; TEMP 98.3
--- NOTE | 2018-11-17 11:39 | EKG ---
Test Reason : Blood Pressure : / mmHG Vent. Rate : 095 BPM Atrial Rate : 095 BPM P-R Int : 116 ms QRS Dur : 086 ms QT Int : 350 ms P-R-T Axes : 044 038 015 degrees QTc Int : 439 ms NORMAL SINUS RHYTHM NORMAL ECG WHEN COMPARED WITH ECG OF 24-OCT-2018 17:46, NO SIGNIFICANT CHANGE WAS FOUND Confirmed by CHELA BAIG MD ([id number]) on 11/17/2018 11:39:10 AM Referred By: Confirmed By:CHELA BAIG MD
== END 2018-11-17 00:05 | disposition home or self-care (01) ==
LOC: JER 20:30
PROC: 3E033GC Introduction of Other Therapeutic Substance into Peripheral Vein, Percutaneous Approach (ICD-10-PCS; principal; 2018-11-16)
PROC: 3E033GC Introduction of Other Therapeutic Substance into Peripheral Vein, Percutaneous Approach (ICD-10-PCS; 2018-11-16)
PROC: 3E033NZ Introduction of Analgesics, Hypnotics, Sedatives into Peripheral Vein, Percutaneous Approach (ICD-10-PCS; 2018-11-16)
PROC: 3E0337Z Introduction of Electrolytic and Water Balance Substance into Peripheral Vein, Percutaneous Approach (ICD-10-PCS; 2018-11-16)
DX: K21.9 Gastro-esophageal reflux disease without esophagitis (principal)
CPT/HCPCS: 36415; 80053; 81003; 82150; 83690; 84484; 84703; 85027; 93005; 93010; 96365; 96375; 99284-25; J0131

== ENCOUNTER 2019-03-24 14:55 | Emergency (ER) | payer OTHER ==
[2019-03-24 15:11] VITALS: BP 130/92; PULSE 100; TEMP 99; BMI 30.4
--- NOTE | 2019-03-24 15:11 | PDOC ---
Rapid Medical Evaluation Time Seen by Provider: 03/24/19 15:08 Medical Evaluation: Allergies Allergy/AdvReac Type Severity Reaction Status Date / Time No Known Allergies Allergy Verified 11/16/18 20:47 03/24/19 15:09 Pt c/o: midsternal pressure intermittently since last night, worse with deep breathing, no cough, no fever Pt on brief exam: hr 100, temp 99, lcta, mild reproducible sternal tenderness Pt ordered for: ekg, labs, cxr Pt to proceed to the ED Discharge Disposition - Diagnosis GERD (gastroesophageal reflux disease), Atypical chest pain - Discharge Dispostion Disposition: HOME Condition at time of disposition: Good - Referrals Referrals: Brenna Diaz MD [Primary Care Provider] - - Patient Instructions Printed Discharge Instructions: DI for Gastroesophageal Reflux Disease (GERD), DI for Atypical Chest Pain Additional Instructions: please follow up with the sterile instrument technician please take your medications as directed Print Language: ROMANIAN - Post Discharge Activity
[2019-03-24 15:36] LABS: BASO % 0.8 % (0-2.0); EOS % 1.4 % (0-4.5); HEMATOCRIT 37.1 % (32.4-45.2); HEMOGLOBIN 12.5 GM/dL (10.7-15.3); LYMPH % 26.4 % (8-40); MCH 28.9 pg (25.7-33.7); MCHC 33.6 g/dl (32.0-36.0); MEAN CELL VOLUME 86.1 fl (80-96); MEAN PLT VOLUME 8.5 fl (7.5-11.1); MONO % 6.4 % (3.8-10.2); PLATELET COUNT 309 K/MM3 (134-434); RBC 4.31 M/mm3 (3.60-5.2); RDW 13.7 % (11.6-15.6); WHITE BLOOD COUNT 12.3 K/mm3 (4.0-10.0)
[2019-03-24 16:01] LABS: ALBUMIN 3.8 g/dl (3.4-5.0); ALK PHOS 114 U/L (45-117); ANION GAP 5 MMOL/L (8-16); BILIRUBIN,TOTAL 0.1 mg/dL (0.2-1); BLOOD UREA NITROGEN 15.8 mg/dL (7-18); CALCIUM 8.9 mg/dL (8.5-10.1); CHLORIDE 104 mmol/L (98-107); CO2 27 mmol/L (21-32); CREATININE 0.7 mg/dL (0.55-1.3); GLUCOSE,RANDOM 94 mg/dL (74-106); SGOT/AST 15 U/L (15-37); SGPT/ALT 42 U/L (13-61); SODIUM 136 mmol/L (136-145)
[2019-03-24] MEDS ORDERED: MAG HYDROX/AL HYDROX/SIMETH 30 ML UNIT-DOSE CUP PO ONE (17:45)
[2019-03-24] MEDS ORDERED: ACETAMINOPHEN 500 MG TABLET (FP) PO STA (17:46)
[2019-03-24] MEDS ORDERED: ACETAMINOPHEN 325 MG TABLET (FP) ONE (17:54)
[2019-03-24] MEDS ORDERED: MAG HYDROX/AL HYDROX/SIMETH 30 ML UNIT-DOSE CUP ONE (17:54)
--- NOTE | 2019-03-24 18:35 | PDOC ---
Documentation entered by Christiano Johnson SCRIBE, acting as scribe for Marleni Celestin MD. Marleni Celestin MD: This documentation has been prepared by the Alex nelson Daniel, SCRIBE, under my direction and personally reviewed by me in its entirety. I confirm that the documentation accurately reflects all work, treatment, procedures, and medical decision making performed by me. History of Present Illness - General Chief Complaint: Chest Pain Stated Complaint: CHEST PAIN Time Seen by Provider: 03/24/19 15:08 History Source: Patient Exam Limitations: No Limitations - History of Present Illness Initial Comments: 03/24/19 18:21 The patient is a 23 year old female with no past medical history here today for evaluation of chest pain. The patient reports that her chest pain began last night and describes it as midsternal, intermittent, and worse when she presses on her chest. Patient denies headache, lightheadedness. Denies fever, chills. Denies shortness of breath. Denies nausea, vomiting, diarrhea, abdominal pain. Allergies: NKA PCP: Brenna Diaz Past History - Past Medical History Allergies/Adverse Reactions: Allergies Allergy/AdvReac Type Severity Reaction Status Date / Time No Known Allergies Allergy Verified 03/24/19 15:11 Home Medications: Ambulatory Orders Famotidine/Ca Carb/Mag Hydrox [Pepcid Complete Tablet Chew] 1 each PO DAILY #30 tab.chew 11/16/18 Mag Hydrox/Al Hydrox/Simeth [Mylanta Suspension -] 30 ml PO Q6H PRN #1 bottle COPD: No - Immunization History Immunization Up to Date: Yes - Psycho Social/Smoking Cessation Hx Smoking History: Never smoked Have you smoked in the past 12 months: No Hx Alcohol Use: No Drug/Substance Use Hx: No Review of Systems - Review of Systems Able to Perform ROS?: Yes Comments:: 03/24/19 18:21 CONSTITUTIONAL: Absent: fever, chills, diaphoresis, generalized weakness, malaise, loss of appetite HEENT: Absent: rhinorrhea, nasal congestion, throat pain, throat swelling, difficulty swallowing, mouth swelling, ear pain, eye pain, visual Changes CARDIOVASCULAR: +chest pain Absent: syncope, palpitations, irregular heart rate, lightheadedness, peripheral edema RESPIRATORY: Absent: cough, shortness of breath, dyspnea with exertion, orthopnea, wheezing, stridor, hemoptysis GASTROINTESTINAL: Absent: abdominal pain, abdominal distension, nausea, vomiting, diarrhea, constipation, melena, hematochezia GENITOURINARY: Absent: dysuria, frequency, urgency, hesitancy, hematuria, flank pain, genital pain MUSCULOSKELETAL: Absent: myalgia, arthralgia, joint swelling SKIN: Absent: rash, itching, pallor HEMATOLOGIC/IMMUNOLOGIC: Absent: easy bleeding, easy bruising, lymphadenopathy, frequent infections ENDOCRINE: Absent: unexplained weight gain, unexplained weight loss, heat intolerance, cold intolerance NEUROLOGIC: Absent: headache, focal weakness or paresthesias, dizziness, unsteady gait, seizure, mental status changes, bladder or bowel incontinence PSYCHIATRIC: Absent: anxiety, depression, suicidal or homicidal ideation, hallucinations. *Physical Exam - Vital Signs Last Vital Signs Temp Pulse Resp BP Pulse Ox 99 F 100 H 18 130/92 96 03/24/19 15:07 03/24/19 15:07 03/24/19 15:07 03/24/19 15:07 03/24/19 15:07 - Physical Exam Comments: 03/24/19 18:22 GENERAL: Well developed, well nourished. Awake and alert. No acute distress. HEENT: Normocephalic, atraumatic. PERRLA, EOMI. No conjunctival pallor. Sclera are non- icteric. Moist mucous membranes. Oropharynx is clear. NECK: Supple. Full ROM. No JVD. Carotid pulses 2+ and symmetric, without bruits. No thyromegaly. No lymphadenopathy. CARDIOVASCULAR: Regular rate and rhythm. No murmurs, rubs, or gallops. Distal pulses are 2+ and symmetric. PULMONARY: No evidence of respiratory distress. Lungs clear to auscultation bilaterally. No wheezing, rales or rhonchi. ABDOMINAL: Soft. Non-tender. Non-distended. No rebound or guarding. No organomegaly. Normoactive bowel sounds. MUSCULOSKELETAL Normal range of motion at all joints. No bony deformities or tenderness. No CVA tenderness. EXTREMITIES: No cyanosis. No clubbing. No edema. No calf tenderness. SKIN: Warm and dry. Normal capillary refill. No rashes. No jaundice. NEUROLOGICAL: Alert, awake, appropriate. Cranial nerves 2-12 intact. No deficits to light touch and temperature in face, upper extremities and lower extremities. No motor deficits in the in face, upper extremities and lower extremities. Normoreflexic in the upper and lower extremities. Normal speech. Toes are down- going bilaterally. Gait is normal without ataxia. PSYCHIATRIC: Cooperative. Good eye contact. Appropriate mood and affect. ED Treatment Course - LABORATORY CBC & Chemistry Diagram: 03/24/19 15:23 03/24/19 15:23 - ADDITIONAL ORDERS Additional order review: Laboratory Results 03/24/19 15:23 Sodium 136 Potassium 4.0 Chloride 104 Carbon Dioxide 27 Anion Gap 5 L BUN 15.8 Creatinine 0.7 Est GFR (CKD-EPI)AfAm 140.55 Est GFR (CKD-EPI)NonAf 121.27 Random Glucose 94 Calcium 8.9 Total Bilirubin 0.1 L AST 15 ALT 42 Alkaline Phosphatase 114 Total Protein 8.0 Albumin 3.8 03/24/19 15:23 RBC 4.31 MCV 86.1 MCHC 33.6 RDW 13.7 MPV 8.5 Neutrophils % 65.0 Lymphocytes % 26.4 Monocytes % 6.4 Eosinophils % 1.4 Basophils % 0.8 - Medications Given in the ED: ED Medications Discontinued Medications Generic Name Dose Route Start Last Admin Trade Name Freq PRN Reason Stop Dose Admin Acetaminophen 675 mg 03/24/19 17:46 03/24/19 18:05 Tylenol - PO 03/24/19 17:47 675 mg ONCE STA Administration Al Hydroxide/Mg Hydroxide 30 ml 03/24/19 17:45 03/24/19 18:05 Mylanta Oral Suspension - PO 03/24/19 17:46 30 ml ONCE ONE Administration Discharge - Discharge Information Problems reviewed: Yes Clinical Impression/Diagnosis: Atypical chest pain GERD (gastroesophageal reflux disease) Qualifiers: Esophagitis presence: with esophagitis Qualified Code(s): K21.0 - Gastro- esophageal reflux disease with esophagitis Condition: Good Disposition: HOME - Admission No - Follow up/Referral Referrals: Brenna Diaz MD [Primary Care Provider] - - Patient Discharge Instructions Patient Printed Discharge Instructions: DI for Gastroesophageal Reflux Disease (GERD), DI for Atypical Chest Pain Additional Instructions: please follow up with the engineer intern please take your medications as directed Print Language: MALTESE - Post Discharge Activity
--- NOTE | 2019-03-25 11:04 | EKG ---
Test Reason : Blood Pressure : / mmHG Vent. Rate : 097 BPM Atrial Rate : 097 BPM P-R Int : 128 ms QRS Dur : 088 ms QT Int : 344 ms P-R-T Axes : 041 042 021 degrees QTc Int : 436 ms NORMAL SINUS RHYTHM NORMAL ECG WHEN COMPARED WITH ECG OF 16-NOV-2018 20:33, NO SIGNIFICANT CHANGE WAS FOUND Confirmed by GABRIELLE CLARK MD ([id number]) on 03/25/2019 11:04:00 AM Referred By: Confirmed By:GABRIELLE CLARK MD
== END 2019-03-24 18:49 | disposition home or self-care (01) ==
LOC: JER 14:55
DX: K21.0 Gastro-esophageal reflux disease with esophagitis (principal); R07.9 Chest pain, unspecified
CPT/HCPCS: 36415; 71046-TC-FY; 80053; 82550; 84484; 85025; 93005; 93010; 99283-25

== ENCOUNTER 2020-12-23 18:38 | Emergency (ER) | payer OTHER ==
[2020-12-23 19:07] VITALS: TEMP 98.6; BMI 32.1
[2020-12-23] MEDS ORDERED: ACETAMINOPHEN 1000 MG/100 ML VIAL (NON FORMULARY) IVPB ONE (20:40)
[2020-12-23] MEDS ORDERED: ACETAMINOPHEN INJECTION 100 ML IVPB ONE (20:47)
[2020-12-23 21:09] LABS: BASO % 0.7 % (0-2.0); EOS % 0.9 % (0-4.5); HEMATOCRIT 34.7 % (32.4-45.2); HEMOGLOBIN 11.3 GM/dL (10.7-15.3); LYMPH % 27.9 % (8-40); MCH 26.1 pg (25.7-33.7); MCHC 32.5 g/dl (32.0-36.0); MEAN CELL VOLUME 80.4 fl (80-96); MONO % 5.9 % (3.8-10.2); NEUT % 64.6 % (42.8-82.8); PLATELET COUNT 365 10^3/uL (134-434); RBC 4.32 M/mm3 (3.60-5.2); RDW 15.5 % (11.6-15.6); WHITE BLOOD COUNT 13.3 K/mm3 (4.0-10.0)
[2020-12-23 21:13] LABS: EPI CELLS >36 /uL (0-25.1); HYALINE CASTS 7 /uL (0-3.1); PH,URINE 5.5 (5.0-8.0); URINE APPEARANCE CLOUDY; URINE BACTERIA 1855 /uL (0-1359); URINE BILIRUBIN NEGATIVE (NEGATIVE); URINE COLOR DK YELLOW; URINE GLUCOSE (UA) NEGATIVE (NEGATIVE); URINE KETONE 1+ (NEGATIVE); URINE LEUK ESTERASE TRACE (NEGATIVE); URINE NITRITE NEGATIVE (NEGATIVE); URINE PROTEIN TRACE (NEGATIVE); URINE WBC 78 /uL (0-25.8)
[2020-12-23 21:22] LABS: ALBUMIN 3.7 g/dl (3.4-5.0); BLOOD UREA NITROGEN 10.6 mg/dL (7-18); CALCIUM 9.2 mg/dL (8.5-10.1)
[2020-12-23 21:25] LABS: CREATININE 0.8 mg/dL (0.55-1.3)
[2020-12-23 21:27] LABS: BILIRUBIN,TOTAL 0.4 mg/dL (0.2-1); TOT PROT 8.3 g/dl (6.4-8.2)
[2020-12-23 21:31] LABS: URINE RBC 25.2 /uL (0-23.9)
[2020-12-23] MEDS ORDERED: DIPHTH,PERTUSS(ACELL),TET 0.5 ML DISP.SYRIN IM ONE ×2 (23:47→23:59)
[2020-12-24 00:24] VITALS: BP 141/84; PULSE 90
== END 2020-12-24 00:25 | disposition home or self-care (01) ==
LOC: JER 18:38
PROC: 3E0333Z Introduction of Anti-inflammatory into Peripheral Vein, Percutaneous Approach (ICD-10-PCS; principal; 2020-12-23)
PROC: 3E0234Z Introduction of Serum, Toxoid and Vaccine into Muscle, Percutaneous Approach (ICD-10-PCS; 2020-12-23)
DX: S93.401A Sprain of unspecified ligament of right ankle, initial encounter (principal); S00.83XA Contusion of other part of head, initial encounter; M54.5 Low back pain
CPT/HCPCS: 36415; 72131-TC; 73590-TC-RT-FY; 73610-TC-RT-FY; 73630-TC-RT-FY; 74177-TC; 80053; 81003; 84703; 85025; 90471; 90715; 96374; 99285-25; J0131; Q9967